=== PATIENT | male | born 1970 | race Caucasian/White ===

== ENCOUNTER → 2024-05-26 | Outpatient (CLI) | payer MEDICAID, SELFPAY ==
--- NOTE | 2024-05-26 08:30 | XR_ITS ---
Examination: MRI of brain without intravenous contrast. MRI brain with intravenous contrast. Date and time of exam: May 26, 2024 0836 hrs. Indications: Headaches dizziness blurred vision ringing in the left ear 2 years Technique: Multiple axial and sagittal images of the brain to been obtained. Siemens high-resolution 1.52 Bing short bore scanner utilized. Sagittal sections, T1 weighted images, TR 500, TE 14, are performed. Axial sections proton-density and T2-weighted images have been obtained. Inversion recovery axial images, TR 9260, TE 111, TR 2500. Diffusion weighted images, axial sections, TR 4800, TE 128, B value 1000. Axial sections, ADC map, TR 4800, TE 128. Axial and coronal images were also obtained post 17 cc gadolinium administered intravenously. Findings:: Enlargement of the sella turcica is not present. The optic chiasm and infundibular stalk are not remarkable. There is no localized enlargement of the medulla or nishi. Fourth ventricle and cerebellar tonsils appear normal in position. No subacute area of hemorrhage density is seen. Significant ethmoid frontal chronic sinusitis Fourth ventricle is midline. Mass in the cerebellopontine angle region is not evident. 7th and 8th nerve complexes exhibit symmetry Globes are symmetrical Orbital musculature including medial lateral rectus muscles do not exhibit abnormality Increased white matter signal is not seen Effacement of the cortical sulcal markings is not identified. Mass effect upon the ventricular system is not identified. Diffusion-weighted images demonstrate no focus of restricted diffusion Contrast images demonstrate no abnormal enhancement Impression: Negative for acute hemorrhage mass effect or midline shift No acute infarct No MR findings diagnostic for demyelinating disease No abnormal enhancing acoustic neuroma, cerebellar or cerebral lesions noted
== END | disposition home or self-care (01) ==
LOC: SMRI 07:47
PROVIDERS: PCP Obstetrics & Gynecology
DX: H93.12 Tinnitus, left ear (principal)
CPT/HCPCS: 70553; A9579